=== PATIENT | female | born 1995 | race Caucasian/White ===

== ENCOUNTER 2016-07-13 04:16 | Emergency (ER) | payer OTHER ==
[~2016-07-13] VITALS: Ht 149.9 cm; Wt 47.6 kg
--- NOTE | 2016-07-13 04:40 | NUR ---
To bed 6 a 20 yo female bibself with c/o stabbing nonradiating chest pain at 10/16 that started yesterday at 1300. Patient reported to have n/v since yesterday. Patient is aaox4, ambulatory. No s/s of acute distress. Breathing even and unlabored. Skin warm and dry. Afebrile. Gowned. 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 Awaiting for er md chacon.
--- NOTE | 2016-07-13 04:57 | NUR ---
Dr Pena at bedside.
--- NOTE | 2016-07-13 05:04 | NUR ---
xr at bedside.
[2016-07-13] MEDS ORDERED: IBUPROFEN 400 MG TABLET ONE (05:05)
[2016-07-13] MEDS: IBUPROFEN 400 MG TABLET PO ONE ×2 (05:10→05:13)
--- NOTE | 2016-07-13 05:42 | NUR ---
Patient discharged to home in stable condition. Written and verbal after care instructions given. Patient verbalizes understanding of instruction. Patient is ambulatory with steady gait.
[2016-07-13 05:43] VITALS: BP 120/66
== END 2016-07-13 05:43 | disposition home or self-care (01) ==
LOC: ER 04:22
DX: R07.89 Other chest pain (principal); Z88.0 Allergy status to penicillin
CPT/HCPCS: 71010-TC; A4606; Z7610